=== PATIENT | male | born 1960 | race Caucasian/White ===

== ENCOUNTER 2016-09-06 07:22 | Emergency (ER) | payer MEDICARE ==
[~2016-09-06] VITALS: Ht 187.9 cm; Wt 81.6 kg
[~2016-09-06 07:22] MED LIST: PERCOCET 325 MG1 TA7 PO; PHENERGAN25 MG R; Zofran4 MG PO
[2016-09-06 07:40] VITALS: BP 155/87
[2016-09-06 08:28] LABS: BASO # 0.1 10*3/uL (0.0-0.1); BASO % 0.4 % (0.0-1.0); EOS % 0.1 % (1.0-4.0); HEMATOCRIT 43.3 % (42.0-52.0); HEMOGLOBIN 14.5 g/dl (14.0-18.0); IG # 0.1 10*3/uL (0.0-0.1); LYMPH # 0.8 10*3/uL (1.3-4.4); LYMPH % 4.1 % (27.0-41.0); MEAN CELL VOLUME 83.9 fl (80.0-94.0); MEAN CORPUSCULAR HGB 28.1 pg (27.0-31.0); MEAN CORPUSCULAR HGB CONC 33.5 g/dl (33.0-37.0); MEAN PLATELET VOLUME 8.8 fl (9.6-12.3); MONO % 5.1 % (3.0-9.0); NEUT # 17.3 10*3/uL (2.3-7.9); NEUT % 89.8 % (47.0-73.0); PLATELET COUNT AUTOMATED 235 10*3/uL (130-400); RED BLOOD COUNT 5.16 10*6/uL (4.50-5.90); RED CELL DISTRI WIDTH 12.8 % (0-14.5); WHITE BLOOD COUNT 19.2 10*3/uL (4.8-10.8)
[2016-09-06 08:35] LABS: INTERNATIONAL NORM RATIO 0.9 (2.0-3.5)
[2016-09-06 08:41] LABS: ALBUMIN 3.7 gm/dl (3.1-4.5); ALKALINE PHOSPHATASE 60 U/L (45-117); BILIRUBIN, TOTAL 0.7 mg/dl (0.2-1.0); BUN 19 mg/dl (7-24); CARBON DIOXIDE 23 mmol/L (21-32); CHLORIDE 106 mmol/L (98-107); EST GLOM FILT AFRICAN AMERICAN > 60 ml/min; GLUCOSE 115 mg/dL (65-99); MAGNESIUM 1.8 mg/dL (1.5-2.1); POTASSIUM 3.3 mmol/L (3.5-5.1); SGOT/AST 19 IU/L (3-35); SGPT/ALT 33 U/L (12-78); SODIUM 140 mmol/L (136-145)
[2016-09-06 08:43] LABS: C-REACTIVE PROTEIN < 0.29 MG/DL (0-0.3)
[2016-09-06 09:10] LABS: BILIRUBIN NEGATIVE (NEGATIVE); BLOOD 3+ (NEGATIVE); CLARITY SL CLOUDY (CLEAR); COLOR YELLOW (YELLOW); GLUCOSE NEGATIVE (NEGATIVE); KETONE NEGATIVE (NEGATIVE); LEUKO ESTERASE TRACE (NEGATIVE); NITRITE NEGATIVE (NEGATIVE); PROTEIN NEGATIVE (NEGATIVE); SPECIFIC GRAVITY 1.025 (1.005-1.030); UROBILINOGEN 0.2 E.U./dl (0.2-1.0)
[2016-09-06 09:23] LABS: BACTERIA 2+; RBC TNTC rbc/hpf (0-2); URIC ACID CRYSTALS 3+; URINE REFLEX COMMENT YES (NO)
[2016-09-06 10:22] LABS: LA>2 REFLEX 2 HR DRAW NOW
[2016-09-06] MEDS ORDERED: FLOMAX0.4 MG PO (10:22)
[2016-09-06] MEDS ORDERED: ZOFRAN ODT4 MG SL (10:22)
[2016-09-06] MEDS ORDERED: Motrin,Rufen800 MG PO (10:22)
== END 2016-09-06 10:42 | disposition home or self-care (01) ==
LOC: ED 07:22
PROVIDERS: Emergency Medicine
DX: N20.1 Calculus of ureter (principal); N50.811 Right testicular pain

== ENCOUNTER 2017-03-18 06:31 | Inpatient (IN) | payer MEDICARE ==
[2017-03-18] VITALS (7 sets, daily range): BP systolic 111–128; BP diastolic 76–91
[~2017-03-18] VITALS: Ht 187.9 cm; Wt 72.3 kg
--- NOTE | ~2017-03-18 | PR ---
[place], [place] PROGRESS NOTE NAME: SHREYA CROCKETT [facility] #: [id number] UNIT #: [id number] ROOM: 515 DOCTOR: BINA CHOPRA MD BIRTHDATE: [birth year] DOS: SUBJECTIVE: The patient is feeling better, starting to tolerate diet and he does have chronic diarrhea. OBJECTIVE: VITAL SIGNS: Blood pressure 127/84, heart rate 78 beats per minute, breathing 16 times per minute, temperature 98.4 degrees Fahrenheit. GENERAL APPEARANCE: The patient is alert and oriented x 3, in no visible distress. HEENT AND NECK: Exam within normal limits. CARDIOVASCULAR SYSTEM: Heart rate is regular in rate and rhythm. S1 and S2 normally audible. LUNGS: Clear to auscultation. ABDOMEN: Soft, nontender. No obvious organomegaly. Bowel sounds are present. EXTREMITIES: Without significant cyanosis or edema. IMPRESSION: 1. Acute over chronic diarrhea and acute viral syndrome with generalized and progressive weakness with inability to walk at home and outpatient treatment failure is improving because he is able to eat a little, although he had not eaten at home for about a week. The patient is still being hydrated with normal saline and he is starting to get stronger. 2. Previous history of colectomy with an S-pouch. The patient is chronically on ciprofloxacin, which is being continued. 3. Type 2 diabetes mellitus, with reasonably controlled blood sugars. 4. Hypokalemia from diarrhea. The patient was given extra potassium supplements. I will repeat potassium levels in the morning. BINA CHOPRA MD CM:PNTRANS 40 5 BINA CHOPRA MD 03/20/1756 interface
--- NOTE | ~2017-03-18 | DS ---
[place], [place] DISCHARGE SUMMARY NAME: SHREYA CROCKETT UNIT #: [id number] ROOM: 515 DOCTOR: BINA CHOPRA MD BIRTHDATE: [birth year] DOS: 03/20/2017 DISCHARGE DIAGNOSES: 1. Acute viral gastroenteritis, resolved. 2. Advanced adult failure to thrive, generalized weakness and inability to walk, resolved. 3. Previous history of colectomy and S-pouch, patient chronically on ciprofloxacin. 4. Type 2 diabetes mellitus. 5. Hypokalemia from diarrhea, resolved. 6. History of kidney stones. 7. History of cerebrovascular accident in the past. 8. History of ulcerative colitis for which he required a colectomy. 9. History of ileostomy reversal in 2008. HOSPITAL COURSE: Patient presented to Emergency Department with complaints of increased diarrhea, weakness, dehydration, and some cough and patient was found on the floor unable to get up because he was very weak. BUN and creatinine were elevated to 33 and 1.5 and potassium low at 3.4. Patient was admitted and treated with hydration and normal saline and potassium was replaced. Patient started eating, which he had not done for about a week and started feeling better and now he is at his baseline and being discharged to home. Acute kidney failure with elevation of creatinine to 2.89, apparently vascular related to dehydration and hypotension, has recovered back to normal with hydration with normal saline. Type 2 diabetes mellitus. Blood sugars were monitored and controlled. Laboratory data, normal serum electrolytes. Hypokalemia, treated with extra potassium supplements. Followup potassium levels have been normal. CT of the abdomen and pelvis showed diffuse enteritis. Normal CBC. Normal chest x-ray. DISCHARGE MANAGEMENT: Patient takes Cymbalta 30 mg a day, ciprofloxacin 500 mg b.i.d. Follow up at the office on Tuesday. [place], [place] DISCHARGE SUMMARY NAME: SHREYA CROCKETT UNIT #: [id number] ROOM: [facility] DOCTOR: BINA CHOPRA MD BIRTHDATE: [birth year] BINA CHOPRA MD CM:DISCHARG [id number] BINA CHOPRA MD 03/21/17 0118 interface
--- NOTE | ~2017-03-18 | CON ---
[place], [place] REPORT OF CONSULTATION NAME: SHREYA CROCKETT UNIT #: [id number] ROOM: 515 DOCTOR: JAYCOB KENNEDY MD BIRTHDATE: [birth year] DOS: This gentleman with known history of ulcerative colitis, status post colectomy and J-pouch for many years with 7 bowel movements per day routinely. Recently, he has been exposed to viral gastroenteritis in addition. Therefore, frequency of his stool is increased and he was unable to eat, anorexia associated, dehydration as well. The patient has been on ciprofloxacin b.i.d. for many years. Metronidazole apparently was producing some side effect of multi-joint pains. Therefore, over the past 2 years, he has been continuously on ciprofloxacin. His labs and records were reviewed. His hypokalemia has been addressed. His magnesium was normal. Phosphorus is going to be rechecked. We are going to continue with normal saline. I have had extensive discussion with himself and his family regarding adjunctive therapy in addition to his ciprofloxacin. Variety of probiotics' names were provided to the family to enhance his well-doing with tolerance of 7 BM per day. Therefore, we are going to go ahead and feed him today and once stable and hydrated adequately perhaps he can be discharged to follow as outpatient. Status post J-pouch for many years and frequency of stool in addition to viral gastroenteritis. Thank you very much indeed. JAYCOB KENNEDY MD CM:CONSTR:REPORT OF CONSULTATION 1529 03/18/17 1737 interface
--- NOTE | ~2017-03-18 | WRIGHTHP ---
[place], [place] PATIENT HISTORY AND PHYSICAL EXAM NAME: SHREYA CROCKETT [facility] #: [id number] UNIT #: [id number] ROOM: [facility] DOCTOR: BINA CHOPRA MD BIRTHDATE: [birth year] DOS: 03/18/2017 HISTORY OF PRESENT ILLNESS: The patient is a 56-year-old gentleman with a past medical history of: 1. Ulcerative colitis and colectomy with ____ pouch, with chronic diarrhea. 2. History of ileostomy reversal in 2008. 3. History of kidney stone. 4. Type 2 diabetes mellitus. 5. History of CVA in the past. The patient presented to the Emergency Department with 1 week complains of increased diarrhea, weakness, dehydration and some cough. The patient says he had other family members in the house with the same symptoms. The patient became so weak he could barely get up from the floor. The patient was evaluated in the Emergency Department and his BUN and creatinine were found to be elevated to 33 and 1.5. Potassium was low at 3.4. The patient was recommended for admission for outpatient treatment failure. No nausea, vomiting. No chest pain. No shortness of breath. No other GI or urinary symptoms. The patient did feel weak, dizzy and lightheaded, but no fainting episodes. REVIEW OF SYSTEMS: LUNGS: No increasing shortness of breath. GASTROINTESTINAL: Chronic diarrhea worse for last 1 week. CARDIOVASCULAR: No palpitations or chest pains. FAMILY HISTORY: Noncontributory. SOCIAL HISTORY: Lives at home. Denies smoking cigarettes, alcohol or drug abuse. ALLERGIES: No known drug allergies. PHYSICAL EXAMINATION: GENERAL: Alert, oriented x 3, generalized weakness. HEENT AND NECK: Extraocular movements are intact. Sclerae are anicteric. Oral mucosa is moist and clean. No obvious facial weakness. Neck is supple without any lymphadenopathy. No thyromegaly. No JVD. No carotid arterial bruits. LUNGS: Clear to auscultation. No wheezing. No rhonchi. CARDIOVASCULAR SYSTEM: Heart rate is regular in rate and rhythm. S1 and S2 normally audible. No significant murmur or any other abnormal cardiac sounds. ABDOMEN: Soft, nontender. No obvious organomegaly. Bowel sounds are present. No obvious herniation. EXTREMITIES: Without significant cyanosis or edema. Warm to touch. CENTRAL NERVOUS SYSTEM: Alert and oriented x 3. Cranial nerves II-XII are intact. Speech is normal. The patient is able to move all extremities. Normal muscle strength. Deep tendon reflexes are equal on both sides. Plantars were downgoing. [place], [place] PATIENT HISTORY AND PHYSICAL EXAM NAME: SHREYA CROCKETT UNIT #: [id number] ROOM: [facility] DOCTOR: BINA CHOPRA MD BIRTHDATE: [birth year] IMPRESSION: 1. The patient with dehydration, elevation of BUN and creatinine, generalized weakness and persistent diarrhea with viral syndrome and cough, admitted for hydration with IV fluids. The patient has inability to walk from increased weakness and he has not been eating for 1 week. The patient has been able to eat a small meal after admission, starting to feel better. 2. History of colectomy with ____ pouch, for which he takes ciprofloxacin, which is being continued. 3. Type 2 diabetes mellitus. We will monitor blood sugars and treat accordingly. 4. Hypokalemia resulting from diarrhea. I will give him extra potassium supplements and patient being rehydrated with normal saline. I will follow serum electrolytes on daily basis. BINA CHOPRA MD CM:HISPHYS:PATIENT HISTORY AND PHYSICAL EXAMINATION 17 23 BINA CHOPRA MD 03/18/172123 interface
[~2017-03-18 06:31] MED LIST changes: +CIPRO500 MG PO; +CYMBALTA30 MG PO; +FLOMAX0.4 MG PO; +Motrin,Rufen800 MG PO; +ZOFRAN ODT4 MG SL
[2017-03-18 07:25] LABS: BASO % 0.2 % (0.0-1.0); HEMATOCRIT 50.1 % (42.0-52.0); HEMOGLOBIN 16.8 g/dl (14.0-18.0); LYMPH # 0.5 10*3/uL (1.3-4.4); LYMPH % 8.7 % (27.0-41.0); MEAN CELL VOLUME 82.3 fl (80.0-94.0); MEAN CORPUSCULAR HGB 27.6 pg (27.0-31.0); MEAN CORPUSCULAR HGB CONC 33.5 g/dl (33.0-37.0); MEAN PLATELET VOLUME 9.9 fl (9.6-12.3); MONO # 0.4 10*3/uL (0.1-1.0); MONO % 6.4 % (3.0-9.0); NEUT # 5.1 10*3/uL (2.3-7.9); PLATELET COUNT AUTOMATED 211 10*3/uL (130-400); RED BLOOD COUNT 6.09 10*6/uL (4.50-5.90); RED CELL DISTRI WIDTH 12.9 % (0-14.5); WHITE BLOOD COUNT 6.1 10*3/uL (4.8-10.8)
[2017-03-18 07:40] LABS: ALBUMIN 3.9 gm/dl (3.1-4.5); ALKALINE PHOSPHATASE 73 U/L (45-117); BUN 30 mg/dl (7-24); CHLORIDE 91 mmol/L (98-107); CREATININE 1.37 mg/dL (0.70-1.30); LIPASE 173 U/L (73-393); POTASSIUM 3.3 mmol/L (3.5-5.1); SGOT/AST 112 IU/L (3-35); SGPT/ALT 121 U/L (12-78); SODIUM 133 mmol/L (136-145); TOTAL PROTEIN 9.4 gm/dL (6.4-8.2)
[2017-03-19] VITALS: BP 120/80
[2017-03-19 08:00] VITALS: BP 116/69
[2017-03-19 16:00] VITALS: BP 127/84
[2017-03-20] VITALS: BP 132/89
[2017-03-20 07:27] LABS: CHLORIDE 102 mmol/L (98-107); CREATININE 0.89 mg/dL (0.70-1.30); POTASSIUM 3.5 mmol/L (3.5-5.1); SODIUM 138 mmol/L (136-145)
[2017-03-20 07:49] LABS: BUN 14 mg/dl (7-24)
[2017-03-20 08:00] VITALS: BP 132/90
[2017-03-20 16:00] VITALS: BP 147/92
== END 2017-03-20 19:00 | disposition home or self-care (01) | DRG 385 ==
LOC: ED 06:31 → EDHOLD 10:05 → 5E 10:15
PROVIDERS: Emergency Medicine; Internal Medicine
DX: K51.919 Ulcerative colitis, unspecified with unspecified complications (principal); N17.0 Acute kidney failure with tubular necrosis; I95.9 Hypotension, unspecified; E86.0 Dehydration; A08.4 Viral intestinal infection, unspecified; E11.9 Type 2 diabetes mellitus without complications; E87.6 Hypokalemia; R00.0 Tachycardia, unspecified; R62.7 Adult failure to thrive; Z90.49 Acquired absence of other specified parts of digestive tract; Z87.442 Personal history of urinary calculi; Z86.73 Personal history of transient ischemic attack (TIA), and cerebral infarction without residual deficits; Z93.2 Ileostomy status; Z79.899 Other long term (current) drug therapy; Z82.49 Family history of ischemic heart disease and other diseases of the circulatory system; Z82.3 Family history of stroke; Z81.8 Family history of other mental and behavioral disorders; Z83.3 Family history of diabetes mellitus; Z78.9 Other specified health status

== ENCOUNTER 2017-08-09 17:02 | Emergency (ER) | payer MEDICARE ==
[~2017-08-09] VITALS: Ht 187.9 cm; Wt 82.6 kg
== END 2017-08-09 18:28 | disposition home or self-care (01) ==
LOC: ED 17:02
DX: S80.11XA Contusion of right lower leg, initial encounter (principal); Z87.442 Personal history of urinary calculi; Z90.49 Acquired absence of other specified parts of digestive tract; Z79.899 Other long term (current) drug therapy; W22.8XXA Striking against or struck by other objects, initial encounter; Y93.89 Activity, other specified; Y92.89 Other specified places as the place of occurrence of the external cause; Y99.9 Unspecified external cause status

== ENCOUNTER 2019-09-24 11:49 | Emergency (ER) | payer MEDICARE ==
[~2019-09-24] VITALS: Ht 182.8 cm; Wt 81.6 kg
[2019-09-24 11:53] VITALS: BP 146/102
[2019-09-24 12:36] LABS: BASO # 0.1 10*3/uL (0.0-0.1); BASO % 0.4 % (0.0-1.0); EOS % 0.3 % (1.0-4.0); HEMATOCRIT 51.1 % (42.0-52.0); LYMPH # 0.8 10*3/uL (1.3-4.4); LYMPH % 6.1 % (27.0-41.0); MEAN CELL VOLUME 83.4 fl (80.0-94.0); MEAN CORPUSCULAR HGB 27.4 pg (27.0-31.0); MEAN CORPUSCULAR HGB CONC 32.9 g/dl (33.0-37.0); MEAN PLATELET VOLUME 8.8 fl (9.6-12.3); MONO # 0.9 10*3/uL (0.1-1.0); MONO % 7.1 % (3.0-9.0); NEUT # 10.8 10*3/uL (2.3-7.9); NEUT % 85.6 % (47.0-73.0); PLATELET COUNT AUTOMATED 292 10*3/uL (130-400); RED BLOOD COUNT 6.13 10*6/uL (4.50-5.90); RED CELL DISTRI WIDTH 12.9 % (0-14.5); WHITE BLOOD COUNT 12.6 10*3/uL (4.8-10.8)
[2019-09-24 12:50] LABS: ALBUMIN 3.8 gm/dl (3.1-4.5); ALKALINE PHOSPHATASE 72 U/L (45-117); BUN 30 mg/dl (7-24); CHLORIDE 101 mmol/L (98-107); CREATININE 1.44 mg/dL (0.70-1.30); LIPASE 172 U/L (73-393); POTASSIUM 3.6 mmol/L (3.5-5.1); SGOT/AST 93 IU/L (3-35); SGPT/ALT 159 U/L (12-78); SODIUM 136 mmol/L (136-145); TOTAL PROTEIN 9.4 gm/dL (6.4-8.2)
[2019-09-24 13:34] LABS: BILIRUBIN NEGATIVE (NEGATIVE); BLOOD 3+ (NEGATIVE); CLARITY CLOUDY (CLEAR); COLOR YELLOW (YELLOW); GLUCOSE NEGATIVE (NEGATIVE); KETONE NEGATIVE (NEGATIVE); SPECIFIC GRAVITY 1.015 (1.005-1.030)
[2019-09-24 13:35] LABS: BACTERIA 2+; LEUKO ESTERASE 1+ (NEGATIVE); MUCOUS 1+; NITRITE NEGATIVE (NEGATIVE); RBC TNTC rbc/hpf (0-2); UROBILINOGEN 0.2 E.U./dl (0.2-1.0); WBC 21-30 wbc/hpf (0-5)
[2019-09-24] MEDS ORDERED: TYLENOL325 M1 PO (13:56)
[2019-09-24] MEDS ORDERED: FLOMAX0.4 MG PO (13:56)
[2019-09-24] MEDS ORDERED: REGLAN10 M1 PO (13:56)
[2019-09-24] MEDS ORDERED: NAPROXEN250 MG PO (13:56)
== END 2019-09-24 15:12 | disposition home or self-care (01) ==
LOC: ED 11:49
PROVIDERS: Emergency Medicine
DX: Z03.818 Encounter for observation for suspected exposure to other biological agents ruled out (principal); N13.30 Unspecified hydronephrosis; N13.4 Hydroureter; R11.2 Nausea with vomiting, unspecified; R31.0 Gross hematuria; R10.9 Unspecified abdominal pain; Z79.899 Other long term (current) drug therapy

== ENCOUNTER 2019-09-29 07:13 | Inpatient (IN) | payer MEDICARE ==
[~2019-09-29] VITALS: Ht 187.9 cm; Wt 76.7 kg
[~2019-09-29 07:13] MED LIST changes: +NAPROXEN250 MG PO; +REGLAN10 M1 PO; +TYLENOL325 M1 PO
[2019-09-29 07:18] VITALS: BP 135/80
[2019-09-29 07:43] LABS: MEAN CELL VOLUME 82.2 fl (80.0-94.0); MEAN CORPUSCULAR HGB 27.5 pg (27.0-31.0); MEAN CORPUSCULAR HGB CONC 33.5 g/dl (33.0-37.0); MEAN PLATELET VOLUME 9.3 fl (9.6-12.3); PLATELET COUNT AUTOMATED 448 10*3/uL (130-400); RED BLOOD COUNT 5.96 10*6/uL (4.50-5.90); RED CELL DISTRI WIDTH 12.3 % (0-14.5); WHITE BLOOD COUNT 11.2 10*3/uL (4.8-10.8)
[2019-09-29 08:00] LABS: ALBUMIN 3.7 gm/dl (3.1-4.5); CREATININE 2.1 mg/dL (0.70-1.30); POTASSIUM 3.6 mmol/L (3.5-5.1); TOTAL PROTEIN 9.3 gm/dL (6.4-8.2)
[2019-09-29 08:04] LABS: TOTAL CELLS COUNTED 100 #CELLS
[2019-09-29 08:05] LABS: PLATELET SUFFICIENCY HIGH (NORMAL)
[2019-09-29 08:13] LABS: BILIRUBIN NEGATIVE (NEGATIVE); BLOOD 3+ (NEGATIVE); CLARITY SL CLOUDY (CLEAR); COLOR YELLOW (YELLOW); GLUCOSE NEGATIVE (NEGATIVE); KETONE NEGATIVE (NEGATIVE); LEUKO ESTERASE TRACE (NEGATIVE); NITRITE NEGATIVE (NEGATIVE); RBC TNTC rbc/hpf (0-2); SPECIFIC GRAVITY 1.015 (1.005-1.030); UROBILINOGEN 0.2 E.U./dl (0.2-1.0)
[2019-09-29 08:14] LABS: BACTERIA 1+
[2019-09-29 09:49] VITALS: BP 129/86
[2019-09-29] MEDS ORDERED: ZOFRAN8 M1 PO (14:08)
[2019-09-29 16:00] VITALS: BP 134/79
[2019-09-29 20:00] VITALS: BP 146/97
[2019-09-30] VITALS: BP 139/83
[2019-09-30 06:31] LABS: HEMATOCRIT 46.9 % (42.0-52.0); MEAN CELL VOLUME 84.8 fl (80.0-94.0); MEAN CORPUSCULAR HGB 27.3 pg (27.0-31.0); MEAN CORPUSCULAR HGB CONC 32.2 g/dl (33.0-37.0); MEAN PLATELET VOLUME 9.5 fl (9.6-12.3); PLATELET COUNT AUTOMATED 428 10*3/uL (130-400); RED BLOOD COUNT 5.53 10*6/uL (4.50-5.90); RED CELL DISTRI WIDTH 12.6 % (0-14.5); WHITE BLOOD COUNT 19.7 10*3/uL (4.8-10.8)
[2019-09-30 06:51] LABS: PLATELET SUFFICIENCY HIGH (NORMAL); TOTAL CELLS COUNTED 100 #CELLS
[2019-09-30 06:52] LABS: BURR CELLS FEW; ROULEAUX SLIGHT
[2019-09-30 06:53] LABS: CREATININE 1.66 mg/dL (0.70-1.30); POTASSIUM 3.7 mmol/L (3.5-5.1)
[2019-09-30 08:00] VITALS: BP 139/79
== END 2019-09-30 15:39 | disposition short-term general hospital (02) | DRG 683 ==
LOC: ED 07:13 → 4E 09:35 → EDHOLD 09:35 → 4E 09:51
PROVIDERS: Emergency Medicine; Internal Medicine Nephrology; ADMIT Internal Medicine
PROC: 0D9670Z Drainage of Stomach with Drainage Device, Via Natural or Artificial Opening (ICD-10-PCS; principal; 2019-09-30)
DX: N17.0 Acute kidney failure with tubular necrosis (principal); K56.609 Unspecified intestinal obstruction, unspecified as to partial versus complete obstruction; E87.1 Hypo-osmolality and hyponatremia; N13.6 Pyonephrosis; E86.0 Dehydration; N40.0 Benign prostatic hyperplasia without lower urinary tract symptoms; E86.9 Volume depletion, unspecified; E87.8 Other disorders of electrolyte and fluid balance, not elsewhere classified; E83.52 Hypercalcemia; I10 Essential (primary) hypertension; Z93.3 Colostomy status; Z83.3 Family history of diabetes mellitus; Z82.3 Family history of stroke; Z82.49 Family history of ischemic heart disease and other diseases of the circulatory system; Z03.818 Encounter for observation for suspected exposure to other biological agents ruled out

== ENCOUNTER → 2019-10-16 | Outpatient (CLI) | payer MEDICARE, SELFPAY ==
[~2019-10-16] MED LIST changes: +ZOFRAN8 M1 PO
[2019-10-16 08:16] LABS: BASO % 0.4 % (0.0-1.0); EOS # 0.1 10*3/uL (0.0-0.4); EOS % 1.6 % (1.0-4.0); HEMATOCRIT 38.5 % (42.0-52.0); LYMPH % 11.8 % (27.0-41.0); MEAN CELL VOLUME 86.5 fl (80.0-94.0); MEAN CORPUSCULAR HGB CONC 31.2 g/dl (33.0-37.0); MEAN PLATELET VOLUME 8.2 fl (9.6-12.3); MONO # 0.6 10*3/uL (0.1-1.0); MONO % 7.6 % (3.0-9.0); NEUT # 6.4 10*3/uL (2.3-7.9); NEUT % 77.4 % (47.0-73.0); PLATELET COUNT AUTOMATED 360 10*3/uL (130-400); RED BLOOD COUNT 4.45 10*6/uL (4.50-5.90); RED CELL DISTRI WIDTH 12.9 % (0-14.5); WHITE BLOOD COUNT 8.2 10*3/uL (4.8-10.8)
[2019-10-16 08:33] LABS: BUN 19 mg/dl (7-24); CHLORIDE 103 mmol/L (98-107); CREATININE 0.92 mg/dL (0.70-1.30); SODIUM 138 mmol/L (136-145)
== END | disposition home or self-care (01) ==
LOC: LAB 08:01
PROVIDERS: ATTEND Physician Assistant
DX: D72.829 Elevated white blood cell count, unspecified (principal); N17.9 Acute kidney failure, unspecified

== ENCOUNTER → 2019-10-26 | Outpatient (CLI) | payer MEDICARE ==
[2019-10-26 08:42] LABS: BASO # 0.1 10*3/uL (0.0-0.1); BASO % 0.8 % (0.0-1.0); EOS # 0.2 10*3/uL (0.0-0.4); EOS % 2.7 % (1.0-4.0); HEMATOCRIT 39.3 % (42.0-52.0); LYMPH # 1.4 10*3/uL (1.3-4.4); LYMPH % 18.2 % (27.0-41.0); MEAN CELL VOLUME 85.6 fl (80.0-94.0); MEAN CORPUSCULAR HGB CONC 31.6 g/dl (33.0-37.0); MEAN PLATELET VOLUME 8.7 fl (9.6-12.3); MONO # 0.6 10*3/uL (0.1-1.0); MONO % 7.9 % (3.0-9.0); NEUT # 5.2 10*3/uL (2.3-7.9); NEUT % 68.4 % (47.0-73.0); PLATELET COUNT AUTOMATED 284 10*3/uL (130-400); RED BLOOD COUNT 4.59 10*6/uL (4.50-5.90); RED CELL DISTRI WIDTH 13.2 % (0-14.5); WHITE BLOOD COUNT 7.6 10*3/uL (4.8-10.8)
[2019-10-26 09:32] LABS: ALBUMIN 3.5 gm/dl (3.1-4.5); BUN 18 mg/dl (7-24); CHLORIDE 105 mmol/L (98-107); POTASSIUM 4.1 mmol/L (3.5-5.1); SODIUM 140 mmol/L (136-145)
[2019-10-26 09:39] LABS: ALKALINE PHOSPHATASE 61 U/L (45-117); CREATININE 0.96 mg/dL (0.70-1.30); SGOT/AST 20 IU/L (3-35); SGPT/ALT 44 U/L (12-78); T3 UPTAKE 33 % (31-39); THYROXINE (T4) TOTAL 11.3 ug/dl (4.5-12.1); TOTAL PROTEIN 8.2 gm/dL (6.4-8.2)
[2019-10-26 10:41] LABS: BILIRUBIN NEGATIVE; BLOOD 3+ (NEGATIVE); CLARITY CLOUDY (CLEAR); COLOR YELLOW (YELLOW); GLUCOSE NEGATIVE; KETONE NEGATIVE; LEUKO ESTERASE 1+ (NEGATIVE); NITRITE NEGATIVE (NEGATIVE); SPECIFIC GRAVITY 1.015 (1.001-1.030); UROBILINOGEN 0.2 E.U./dl (0.0-1.0)
[2019-10-26 10:45] LABS: BACTERIA 2+; RBC TNTC rbc/hpf (0-2); URIC ACID CRYSTALS 2+
== END | disposition home or self-care (01) ==
LOC: LAB 08:11
PROVIDERS: ATTEND Urology
DX: Z12.5 Encounter for screening for malignant neoplasm of prostate (principal); N20.0 Calculus of kidney; R31.9 Hematuria, unspecified; D40.0 Neoplasm of uncertain behavior of prostate

== ENCOUNTER → 2019-10-29 | Outpatient (CLI) | payer MEDICARE | END | disposition home or self-care (01) | LOC: LAB 08:18 | PROVIDERS: ATTEND Urology | DX: E83.50 Unspecified disorder of calcium metabolism (principal); R31.9 Hematuria, unspecified; D40.0 Neoplasm of uncertain behavior of prostate ==

== ENCOUNTER → 2021-11-09 | Outpatient (CLI) | payer MEDICARE ==
[2021-11-09 09:29] LABS: HEMATOCRIT 45.8 % (42.0-52.0); MEAN CELL VOLUME 86.9 fl (80.0-94.0); MEAN CORPUSCULAR HGB 27.7 pg (27.0-31.0); MEAN CORPUSCULAR HGB CONC 31.9 g/dl (33.0-37.0); MEAN PLATELET VOLUME 8.6 fl (9.6-12.3); RED BLOOD COUNT 5.27 10*6/uL (4.50-5.90); RED CELL DISTRI WIDTH 13.5 % (0-14.5); WHITE BLOOD COUNT 6.5 10*3/uL (4.8-10.8)
[2021-11-09 09:55] LABS: BUN 20 mg/dl (7-24); CHLORIDE 107 mmol/L (98-107); POTASSIUM 4.3 mmol/L (3.5-5.1); SODIUM 141 mmol/L (136-145)
[2021-11-09 09:59] LABS: ALKALINE PHOSPHATASE 65 U/L (45-117); CHOLESTEROL 148 mg/dL (<200); CREATININE 0.95 mg/dL (0.70-1.30); LDL CHOLESTEROL 78 mg/dL (9-159); SGOT/AST 19 IU/L (3-35); SGPT/ALT 28 U/L (12-78); TOTAL PROTEIN 8.5 gm/dL (6.4-8.2); TRIGLYCERIDES 110 mg/dl (<150)
== END | disposition home or self-care (01) ==
LOC: LAB 09:11
PROVIDERS: ATTEND Family Medicine
DX: Z79.899 Other long term (current) drug therapy (principal); R53.83 Other fatigue; D64.9 Anemia, unspecified

== ENCOUNTER → 2024-04-20 | Outpatient (CLI) | payer MEDICARE ==
[~2024-04-20] MED LIST changes: +ABILIFY2 MG PO; +BUSPAR5 MG PO; +CYMBALTA60 MG PO; +ELIQUIS2.5 M1 PO; +GILTUSS COUGH-118 M1 PO; +PREDNISONE10 MG PO; +TART CHERRY E1000 MG PO; +VIBRA-TAB100 MG PO; +VITAMIN B122500 MCG SL; +VITAMIN D3125 MCG PO
== END | disposition home or self-care (01) ==
LOC: ORTHO 04:28
PROVIDERS: ATTEND Orthopaedic Surgery
DX: S72.031D Displaced midcervical fracture of right femur, subsequent encounter for closed fracture with routine healing (principal); S52.531D Colles' fracture of right radius, subsequent encounter for closed fracture with routine healing; M79.89 Other specified soft tissue disorders; X58.XXXD Exposure to other specified factors, subsequent encounter

== ENCOUNTER → 2024-04-27 | Outpatient (CLI) | payer MEDICARE ==
[2024-04-27 10:06] LABS: ALKALINE PHOSPHATASE 106 U/L (46-116); BUN 21 mg/dl (9-23); CHLORIDE 97 mmol/L (98-107); POTASSIUM 4.2 mmol/L (3.4-5.1); SGPT/ALT 19 U/L (5-49); TOTAL PROTEIN 8.2 gm/dL (6.0-8.0)
== END | disposition home or self-care (01) ==
LOC: LAB 09:03
PROVIDERS: ATTEND Internal Medicine Nephrology
DX: N20.0 Calculus of kidney (principal); E87.6 Hypokalemia; E87.1 Hypo-osmolality and hyponatremia

== ENCOUNTER → 2024-04-30 | Outpatient (CLI) | payer MEDICARE | END | disposition home or self-care (01) | LOC: LAB 08:23 | PROVIDERS: ATTEND Internal Medicine Nephrology | DX: N20.0 Calculus of kidney (principal); E87.6 Hypokalemia; E87.1 Hypo-osmolality and hyponatremia ==

== ENCOUNTER → 2024-05-18 | Outpatient (CLI) | payer MEDICARE | END | disposition home or self-care (01) | LOC: ORTHO 04:17 | PROVIDERS: ATTEND Orthopaedic Surgery | DX: S72.031D Displaced midcervical fracture of right femur, subsequent encounter for closed fracture with routine healing (principal); S52.531D Colles' fracture of right radius, subsequent encounter for closed fracture with routine healing; Z96.698 Presence of other orthopedic joint implants; X58.XXXD Exposure to other specified factors, subsequent encounter ==

== ENCOUNTER → 2024-06-29 | Outpatient (CLI) | payer MEDICARE | END | disposition home or self-care (01) | LOC: ORTHO 05:10 | PROVIDERS: ATTEND Orthopaedic Surgery | DX: S72.031D Displaced midcervical fracture of right femur, subsequent encounter for closed fracture with routine healing (principal); Z98.890 Other specified postprocedural states; X58.XXXD Exposure to other specified factors, subsequent encounter ==

== ENCOUNTER → 2024-07-02 | Outpatient (CLI) | payer MEDICARE ==
[2024-07-02 08:24] LABS: BILIRUBIN Negative (Negative); BLOOD Negative (Negative); CLARITY Clear (Clear); COLOR Yellow (Yellow); GLUCOSE Negative (Negative); KETONE Trace (Negative); LEUKO ESTERASE Trace (Negative); NITRITE Negative (Negative); PH 5.5 (4.5-8.0)
[2024-07-02 08:49] LABS: MUCOUS 1+; RBC 0-2 rbc/hpf (0-2)
[2024-07-02 09:04] LABS: BUN 19 mg/dl (9-23); CHLORIDE 104 mmol/L (98-107); POTASSIUM 4.6 mmol/L (3.4-5.1)
== END | disposition home or self-care (01) ==
LOC: LAB 08:02
PROVIDERS: ATTEND Internal Medicine Nephrology
DX: N20.0 Calculus of kidney (principal)

== ENCOUNTER → 2024-10-31 | Outpatient (CLI) | payer MEDICARE | END | disposition home or self-care (01) | LOC: ORTHO 02:06 | PROVIDERS: ATTEND Orthopaedic Surgery | DX: S72.031D Displaced midcervical fracture of right femur, subsequent encounter for closed fracture with routine healing (principal); Z96.641 Presence of right artificial hip joint; X58.XXXD Exposure to other specified factors, subsequent encounter ==

== ENCOUNTER → 2024-11-14 | Outpatient (CLI) | payer MEDICARE ==
[2024-11-14 07:58] LABS: MEAN CELL VOLUME 84.7 fl (80.0-94.0); MEAN CORPUSCULAR HGB 25.7 pg (27.0-31.0); MEAN PLATELET VOLUME 8.5 fl (9.6-12.3); NUCLEATED RED BLOOD CELL 0.0 % (0.0-0.0); NUCLEATED RED BLOOD CELL 0.0 10*3/uL (0.0-0.0); PLATELET COUNT AUTOMATED 320.0 10*3/uL (130-400); RED CELL DISTRI WIDTH 16.4 % (0-14.5)
[2024-11-14 08:30] LABS: BUN 22 mg/dl (9-23); LDL CHOLESTEROL 92 mg/dL (9-159); SGPT/ALT 35 U/L (5-49)
== END | disposition home or self-care (01) ==
LOC: LAB 07:41
PROVIDERS: ATTEND Family Medicine
DX: K21.9 Gastro-esophageal reflux disease without esophagitis (principal); R53.83 Other fatigue; Z12.5 Encounter for screening for malignant neoplasm of prostate; Z79.899 Other long term (current) drug therapy